=== PATIENT | female | born 1995 | race Caucasian/White ===

== ENCOUNTER 2017-01-14 19:03 | Emergency (ER) | payer OTHER ==
[~2017-01-14] VITALS: Ht 175.3 cm; Wt 66.4 kg
[~2017-01-14 19:03] MED LIST: CEFTIN250 M1 PO; CEPHALEXIN250 M1 PO; NO HOME MEDICATIONS; PRILOSEC 20MG20 MG PO
[2017-01-14 19:06] VITALS: TEMP 98.9
[2017-01-14 19:52] LABS: BASO % 0.2 % (0.0-2.0); GRAN # 14.8 (1.4-6.5); HEMATOCRIT 40.7 % (35.0-45.0); HEMOGLOBIN 14.1 g/dl (12.0-15.0); LYMPH # 0.7 (1.2-3.4); LYMPH % 4.2 % (20.0-51.0); MEAN CELL VOLUME 92 fl (80.0-95.0); MEAN CORPUSCULAR HEMOGLOBIN 32 pg (26.0-32.0); MEAN CORPUSCULAR HGB CONC 35 g/dl (33.0-37.0); MEAN PLATELET VOLUME 10.6 fl (7.4-10.4); MONO # 1.2 (0.1-0.6); MONO % 7.1 % (1.7-9.3); PLATELET COUNT 206 K/mm3 (130-400); RED BLOOD COUNT 4.44 M/mm3 (4.10-5.30); REDCELL DISTRIBUTION WIDTH-CV 12.6 % (11.5-14.5); WHITE BLOOD COUNT 16.8 K/mm3 (4.8-10.8)
[2017-01-14 20:06] LABS: PH 6 (5-8); URINE APPEARANCE Clear; URINE BACTERIA Rare /hpf; URINE BILIRUBIN Negative (NEGATIVE); URINE BLOOD Negative (NEGATIVE); URINE COLOR Yellow; URINE GLUCOSE Negative (NEGATIVE); URINE KETONE Trace (NEGATIVE); URINE RBC 0-2 /hpf; URINE UROBILINOGEN Negative (NEGATIVE); URINE WBC 0-2 /hpf
[2017-01-14 20:06] LABS: ADJUSTED CALCIUM 9.1 mg/dL (8.4-10.2); ALBUMIN 4.8 gm/dL (3.5-5.0); BILIRUBIN,TOTAL 1.4 mg/dL (0.0-1.0); C-REACTIVE PROTEIN 2.9 mg/dL (0.0-0.9); CALCIUM 9.7 mg/dL (8.4-10.2); CREATININE, serum 0.72 mg/dL (0.52-1.25); POTASSIUM 3.7 mmol/L (3.4-5.0); TOTAL PROTEIN 7.8 gm/dL (6.4-8.2)
[2017-01-14] MEDS ORDERED: ZOFRAN ODT4 MG PO (21:53)
[2017-01-14 21:57] VITALS: BP 114/76; PULSE 86
== END 2017-01-14 22:07 | disposition home or self-care (01) ==
LOC: COL.ER 19:03
PROVIDERS: Emergency Medicine
DX: K52.9 Noninfective gastroenteritis and colitis, unspecified (principal); R10.31 Right lower quadrant pain
CPT/HCPCS: J1170; J2550; J7030; Q9967

== ENCOUNTER 2017-07-21 01:37 | Emergency (ER) | payer OTHER ==
[~2017-07-21] VITALS: Ht 175.3 cm; Wt 56.8 kg
[~2017-07-21 01:37] MED LIST changes: +ZOFRAN ODT4 MG PO
[2017-07-21 01:38] VITALS: BP 147/74; TEMP 98.7
[2017-07-21] MEDS ORDERED: LAMICTAL200 MG PO (01:44)
[2017-07-21 02:14] VITALS: PULSE 98
== END 2017-07-21 02:15 | disposition home or self-care (01) ==
LOC: COL.ER 01:37
DX: R53.81 Other malaise (principal); R11.0 Nausea; F31.9 Bipolar disorder, unspecified; F41.0 Panic disorder [episodic paroxysmal anxiety]; F17.210 Nicotine dependence, cigarettes, uncomplicated

== ENCOUNTER 2017-09-04 20:56 | Emergency (ER) | payer OTHER ==
[~2017-09-04] VITALS: Ht 175.3 cm; Wt 59.2 kg
[~2017-09-04 20:56] MED LIST changes: +LAMICTAL200 MG PO
[2017-09-04 21:00] VITALS: TEMP 99.4
[2017-09-04 23:24] VITALS: BP 121/75; PULSE 82
== END 2017-09-04 23:37 | disposition home or self-care (01) ==
LOC: COL.ER 20:56
DX: F10.99 Alcohol use, unspecified with unspecified alcohol-induced disorder (principal); F11.90 Opioid use, unspecified, uncomplicated; R42 Dizziness and giddiness; F31.9 Bipolar disorder, unspecified; F17.210 Nicotine dependence, cigarettes, uncomplicated
CPT/HCPCS: J2405; J7030

== ENCOUNTER 2023-10-09 07:35 | Emergency (ER) | payer OTHER ==
[~2023-10-09] VITALS: Ht 175.3 cm; Wt 65.9 kg
[2023-10-09 07:49] VITALS: TEMP 97.8
[2023-10-09 08:23] LABS: BASO # 0.1 K/mm3 (0.0-0.2); BASO % 0.6 % (0.0-2.0); EOS # 0.1 K/mm3 (0.0-0.7); EOS % 0.6 % (0.0-4.0); GRAN # 8.9 K/mm3 (1.4-6.5); GRAN % 70.3 % (42.2-75.2); HEMATOCRIT 46.8 % (37.0-47.0); HEMOGLOBIN 16.4 g/dl (12.5-16.0); LYMPH # 2.9 K/mm3 (1.2-3.4); LYMPH % 23.3 % (20.0-51.0); MEAN CELL VOLUME 92 fl (80.0-100.0); MEAN CORPUSCULAR HEMOGLOBIN 32 pg (27-31); MEAN CORPUSCULAR HGB CONC 35 g/dl (33.0-37.0); MEAN PLATELET VOLUME 10.3 fl (7.4-10.4); MONO # 0.6 K/mm3 (0.1-0.6); MONO % 4.7 % (1.7-9.3); PLATELET COUNT 238 K/mm3 (130-400); REDCELL DISTRIBUTION WIDTH-CV 13.1 % (11.5-14.5)
[2023-10-09 08:25] LABS: TRICYCLIC ANTIDEPRESS URINE NEGATIVE
[2023-10-09 08:41] LABS: ALBUMIN 4.6 gm/dL (3.5-5.0); BILIRUBIN,TOTAL 0.8 mg/dL (0.2-1.2); CALCIUM 9.6 mg/dL (8.4-10.2); CREATININE, serum 0.79 mg/dL (0.57-1.11); POTASSIUM 3.9 mmol/L (3.5-4.5)
[2023-10-09] MEDS ORDERED: LIBRIUM 25M25 MG/CAP PO ×3 (10:02→17:17)
[2023-10-09 10:14] VITALS: BP 108/68; PULSE 103
[2023-10-10 01:36] LABS: COLLECTION METHOD CLEAN CATCH
[2023-10-10 02:46] LABS: URINE APPEARANCE Clear (CLEAR/HAZY); URINE BLOOD TRACE-INTACT (NEGATIVE); URINE COLOR Yellow (YELLOW); URINE GLUCOSE Negative (NEGATIVE); URINE KETONE Negative (NEGATIVE); URINE NITRATE Negative (NEGATIVE); URINE PROTEIN(semi-quant) Negative (NEGATIVE); URINE UROBILINOGEN 0.2 E.U/dL (0.2-1.0)
[2023-10-10 02:50] LABS: SQUAMOUS EPITHELIAL 0-2 /hpf (0-10); URINE RBC None Seen /hpf (0-2)
[2023-10-10 02:51] LABS: MUCOUS Present (NOT PRESENT); URINE BACTERIA Moderate /hpf (NONE SEEN)
== END 2023-10-09 10:16 | disposition home or self-care (01) ==
LOC: COL.ER 07:35
PROVIDERS: Personal Emergency Response Attendant
DX: F10.239 Alcohol dependence with withdrawal, unspecified (principal); F10.229 Alcohol dependence with intoxication, unspecified; Y90.8 Blood alcohol level of 240 mg/100 ml or more
CPT/HCPCS: J2060; J7030